=== PATIENT | female | born 1960 | race Caucasian/White ===

== ENCOUNTER 2023-12-31 10:56 | Emergency (ER) | payer BC, SELFPAY ==
[2023-12-31 11:08] VITALS: BP 113/73
[2023-12-31 11:33] VITALS: BP 131/100
--- NOTE | 2023-12-31 11:43 | ED.GENMED ---
History of Present Illness
<ANNA MARIE Harris Last Filed: 12/31/23 13:46>
General
Chief Complaint: Breathing Problem
Source: patient
Exam Limitations: none
Time Seen by Provider: 12/31/23 11:43
Nursing documentation reviewed up to this point in time: agreed with
Travel History
Have you had any contact with someone who has COVID-19?: No
Do you have any symptoms of coronavirus? Fever > 100 degrees, chills, cough, shortness of breath, sore throat, loss of taste or smell, muscle aches, or headache?: No
History of Present Illness
History of Present Illness:
63-year-old female with past medical history of hyperlipidemia, daily tobacco use presenting the emergency department today with 3 days of shortness of breath with exertion. Patient was seen yesterday in [facility] emergency department for
this issue. At the time, they did a CTA of the chest which was negative for PE but did note early emphysematous changes as well as radiation fibrosis changes. Patient states that everything else looked good and they scheduled her for cardiology
follow-up this morning but when she went to the cardiology office this morning, they said that they do not have an appointment for her. Patient then decided to come back to emergency department today at this time. Patient states that since
yesterday, her shortness of breath has been getting worse, but at rest she feels well. Patient denies any chest pain associated with this.
Past History
<ANNA MARIE Harris Last Filed: 12/31/23 13:46>
Past History
ED Past Medical History: Hypercholesterolemia; Negative IDDM, NIDDM or [place]
Social History
Tobacco: Non-smoker
Alcohol: None
Drug: None
Personal:
Living: with family
Employment: Employed
Family History
Family History: Negative Early CAD
Review of Systems
<ANNA MARIE Harris Filed: 12/31/23 13:46>
Review of Systems
All Other Systems: ROS reviewed and negative except as documented in HPI and ROS
Phy Exam
<Kailey Lamb PA-C - Last Filed: 12/31/23 13:46>
Physical Exam
Physical Exam:
General: Patient is well appearing and in no acute distress; non-toxic
Skin: Warm and dry, no rashes or lesions
Head: Normocephalic, atraumatic
Eyes: Sclera non-icteric. EOMs intact.
Cardiac: Regular rate and rhythm, no murmur
Peripheral Vascular: No lower extremity edema, 2+ dorsalis pedis pulses bilaterally
Pulm: Normal respiratory effort, scattered end expiratory wheezes heard on exam, no rhonchi
Neuro: CN II-XII intact, no focal neurologic deficits.
Psychiatric: Appropriate mood and affect.
Scores
<Kailey Lamb PA-C - Last Filed: 12/31/23 13:46>
Heart Failure Risk
Heart Failure Risk Score: Not Applicable
Course
<Kailey Lamb PA-C - Last Filed: 12/31/23 13:46>
Orders/Labs/Results
Orders:
Orders
12/31/23 11:11
Electrocardiogram (*1) Urgent
Reason for Study: Shortness of Breath
12/31/23 11:12
EKG- Treatment ONCE
12/31/23 12:14
Ipratropium/Albuterol Sulfate [Duoneb] 3 ml INH R NOW STA
12/31/23 13:10
Prednisone [Deltasone] 50 mg PO NOW STA
Vital Signs
Initial and Last Documented VS:
Initial Vital Signs
Temp Pulse Resp BP Pulse Ox
98.1 F 89 20 113/73 98
12/31/23 11:08 12/31/23 11:08 12/31/23 11:08 12/31/23 11:08 12/31/23 11:08
Last Documented Vital Signs
Temp Pulse Resp BP Pulse Ox
98.1 F 64 20 175/96 99
12/31/23 11:08 12/31/23 13:30 12/31/23 11:08 12/31/23 13:00 12/31/23 13:15
<Rodríguez Ugalde DO - Last Filed: 12/31/23 13:13>
Orders/Labs/Results
Orders:
Orders
12/31/23 11:11
Electrocardiogram (*1) Urgent
Reason for Study: Shortness of Breath
12/31/23 11:12
EKG- Treatment ONCE
12/31/23 12:14
Ipratropium/Albuterol Sulfate [Duoneb] 3 ml INH R NOW STA
12/31/23 13:10
Prednisone [Deltasone] 50 mg PO NOW STA
Vital Signs
Initial and Last Documented VS:
Initial Vital Signs
Temp Pulse Resp BP Pulse Ox
98.1 F 89 20 113/73 98
12/31/23 11:08 12/31/23 11:08 12/31/23 11:08 12/31/23 11:08 12/31/23 11:08
Last Documented Vital Signs
Temp Pulse Resp BP Pulse Ox
98.1 F 64 20 175/96 99
12/31/23 11:08 12/31/23 13:30 12/31/23 11:08 12/31/23 13:00 12/31/23 13:15
<Kailey Lamb PA-C - Last Filed: 12/31/23 13:46>
MDM/Problems Addressed
Differential Diagnosis Includes:
ddx include upper respiratory tract infection, influenza, acute bronchitis, COPD, radiation pneumonitis
MDM/Problems Addressed:
shortness of breath
Chronic conditions affecting care:
hyperlipidemia, hypothyroidism, tobacco use, hypertension
Acute Exacerbation and/or Progression of Chronic Illness:
hyperlipidemia, hypothyroidism, tobacco use, hypertension
<Kailey Lamb PA-C - Last Filed: 12/31/23 13:46>
*Pulse Oximetry
Patient hypoxic: no
*EKG
Interpreted by ED Provider?: Yes
EKG Intrepretation Date: 12/31/23
Interpretation: abnormal
Comparison EKG: changes noted (QRS duration has decreased)
Heart Rate: 70
Rate: normal
Rhythm: sinus
[place]: normal axis
Interval: normal interval, normal QT interval and normal [place] interval
QRS Pattern: normal QRS
Ischemia: no ischemia
*Critical Care Note
Total Time (30-74mins, 75-104mins- exclusive of procedures): Not Applicable
Data Reviewed
Review of Other/Old Records Reveals: Records (Reviewed previous ER physician documentation from 07/20/2021, reviewed ER physician documentation from 11/05/2012) and Discharge Summary (Discharge summaries in [facility] to review)
Source: patient and records
<Kailey Lamb PA-C - Last Filed: 12/31/23 13:46>
Patient Management
Escalation/DeEscalation of care consider admission/obs:
63-year-old female with past medical history of hyperlipidemia, daily tobacco use presenting the emergency department today with 3 days of shortness of breath with exertion. Patient was seen yesterday in [facility] emergency department for
this issue and that time we did a CTA of her chest, labs, EKG, and arrange for her to have outpatient cardiology follow-up. Patient states that she still feels short of breath today and did not send her home with any medication and when she tried
to follow-up with cardiology today, they said they had no appointment for her. I personally reviewed the patient's CTA from yesterday which revealed mild eczematous changes as well as mild mild fibrotic changes. No evidence of PE. Her EKG today
demonstrates normal sinus rhythm with no acute ischemic changes. Patient states that her labs yesterday were normal. No indication for imaging at this time. I gave patient a DuoNeb treatment which she states that she felt like it did help some of
her symptoms. We also gave patient a dose of prednisone here. We will send her home with a short course and have her set up an appointment as an outpatient to see a chief crna. We have also attached her with a [facility] chest pain hotline to help
expedite cardiology follow-up. Patient stable for discharge at this point. Return precautions given.
ED Attending Note
<Kailey Lamb PA-C - Last Filed: 12/31/23 13:46>
-
Portions of this chart may have been created with voice recognition software.� Occasional wrong word or��sound alike� substitutions may have occurred due to the inherent limitations of voice recognition software.
<Rodríguez Ugalde DO - Last Filed: 12/31/23 13:13>
ED Attending Note
Patient seen and examined by attending physician: Yes
I performed the substantive portion of visit, reviewed & personally made and approve the management plan that is documented in note by myself or DENIA.: Yes
I performed a history and physical exam of patient and discussed management with resident, I reviewed resident's note and agree with documented findings and plan of care.: Yes
ED Attending Note:
I evaluated the patient at bedside. Her room air sats are 99%. She is hypertensive here. She states she has had some radiation related fibrosis/emphysematous changes. She has an inhaler. Will add steroids. She states that you are at low still
moving appointment to see cardiology today however cardiology office had no record of this. We will use low risk cardiology follow-up for her to follow-up with a youth officer here through [place]. Her EKG is unremarkable.
Discharge Plan
Departure
Patient Disposition: Home (Routine Discharge)
Date of Disposition: 12/31/23
Time of Disposition: 13:17
Patient with high blood pressure during this ER visit?: Yes
Condition: Good
Discharge Problem:
Shortness of breath
Instructions: Shortness of Breath (Dyspnea) (DC), Chest Pain CBC Follow Up
Prescriptions:
New
prednisone 20 mg tablet
40 mg PO DAILY 4 Days Qty: 8 0RF
No Action
bupropion HCl 150 mg Tablet Sustained-Release 12 Hr
150 mg PO DAILY
bupropion HCl 150 mg Tablet Sustained-Release 12 Hr
150 mg PO NOON PRN (Reason: depression)
atorvastatin 20 mg Tablet
20 mg PO DAILY
naproxen sodium [Aleve] 220 mg Tablet
220 mg PO DAILYPRN PRN (Reason: mild pain)
ciprofloxacin-dexamethasone 0.3-0.1 % drops,suspension
4 drp LEFT EAR BID
Patient Comments:
12/31/2023, filled on 12/25/[address] 4 drops in left ear BID for 10 days.
thyroid (pork) [Tell Thyroid] 30 mg Tablet
30 mg PO DAILY
Medical Marijuana
1 puff inhalation Q1HPRN PRN (Reason: anxiety)
Patient Comments:
12/31/2023, pt. smokes flower form and smokes one puff at a time throughout the entire day.
Pain Patch
1 patch topical DAILYPRN PRN (Reason: left hip)
iron
1 tab PO DAILYPRN PRN (Reason: supplement)
Referrals:
Rema Hwang MD [Active] - Call in 1-3 days for appt
Yun Rivera DO [Family Provider] -
Activity Restrictions/Additional Instructions:
Please call the attached number for the chief crna. You can call the office today to schedule an appointment.
[facility] They should call you within the coming days to schedule a closer appointment. If they do not, please call the attached number to schedule an appointment.
You received a dose of prednisone today. We have also sent Prednisone to your pharmacy. Please take this for 4 more days. Please take 40 mg once daily for 4 more days.
Please return to the emergency department should you experience an acute worsening of your symptoms, chest pain, syncopal episodes, light headedness, confusion, difficulty speaking, pain or swelling in your legs, or any other concerning signs or
symptoms.
Interventions
Interventions:
*Risk Screen - Suicide Last Done: 12/31/23 11:27
*General Assessment Last Done: 12/31/23 11:27
*Neglect/Abuse Screening Last Done: 12/31/23 11:27
ED- Fall Risk Assessment Last Done: 12/31/23 11:27
*ED COVID-19 Vaccine History Last Done: 12/31/23 11:24
*Nursing Disposition Last Done: 12/31/23 13:37
ED- Cardiac Assessment Last Done: 12/31/23 11:27
ED- Pulmonary Assessment Last Done: 12/31/23 11:27
Discharge Date and Time
Print Language: BELARUSIAN
[2023-12-31 12:00] VITALS: BP 134/87
[2023-12-31] MEDS: DUONEB 3 ML INH (12:18)
[2023-12-31 13:00] VITALS: BP 175/96
[2023-12-31] MEDS: DELTASONE 50 MG PO (13:31)
== END 2023-12-31 13:48 | disposition home or self-care (01) ==
LOC: EMR 10:56
PROVIDERS: EMERGENCY PHYSICIAN Emergency Medicine; FAMILY PHYSICIAN Family Medicine
DX: R06.02 Shortness of breath (principal); E78.00 Pure hypercholesterolemia, unspecified
CPT/HCPCS: 99283; 94640; 93005

== ENCOUNTER 2024-01-02 19:11 | Emergency (ER) | payer BC, SELFPAY ==
[2024-01-02 19:20] VITALS: BP 158/90
[2024-01-02 19:39] LABS: % Basophils 0.4 % (0-2); % Eosinophils 0.1 % (0-6); % Immature Granulocytes 0.5 % (0-0.5); % Lymphocytes 15.8 % (20.5-51.1); % Monocytes 5.3 % (1.7-9.3); % Neutrophils 77.9 % (42.2-75.2); Absolute Basophils 0.1 10^3/uL (0-0.2); Absolute Immature Granulocytes 0.1 10^3/uL (0-0.05); Absolute Lymphocytes 2.2 10^3/uL (1.2-3.4); Absolute Monocytes 0.7 10^3/uL (0.1-0.6); Absolute Neutrophils 10.7 10^3/uL (1.4-6.5); Hematocrit 39.1 % (37.0-47.0); Hemoglobin 13.5 g/dL (12.0-16.0); Mean Corp Hgb Conc. 34.5 g/dL (33.0-37.0); Mean Corpuscular Hgb 32.9 pg (27.0-31.0); Mean Corpuscular Volume 95.4 fL (81.0-99.0); Mean Platelet Volume 9.1 fL (7.4-10.4); Nucleated Red Blood Cells % 0 %; Platelet Count 249 10^3/uL (130-400); Red Cell Dist. Width 13.2 % (11.5-14.5); White Blood Cell Count 13.7 10^3/uL (4.8-10.8)
[2024-01-02 19:53] LABS: ALT (SGPT) 29 U/L (0-35); AST (SGOT) 72 U/L (14-36); Albumin 4.8 g/dl (3.5-5.0); Alkaline Phosphatase 119 U/L (38-126); Blood Urea Nitrogen 35 mg/dl (7-17); Calcium 10.4 mg/dl (8.4-10.2); Carbon Dioxide 25 mmol/L (22-30); Chloride 104 mmol/L (98-107); Glucose 134 mg/dl (70-99); Potassium 3.4 mmol/L (3.5-5.1); Sodium 140 mmol/L (135-145); Total Bilirubin 0.5 mg/dl (0.2-1.3); Total Protein 7.4 g/dl (6.3-8.2); eGFR > 60.00
== END 2024-01-02 23:01 ==
LOC: EMR 19:11
PROVIDERS: Emergency Medicine
DX: R50.9 Fever, unspecified (principal); Z53.21 Procedure and treatment not carried out due to patient leaving prior to being seen by health care provider
CPT/HCPCS: 80053; 83605; 85025; 87040

== ENCOUNTER 2024-01-03 08:54 | Emergency (ER) | payer BC, SELFPAY ==
[2024-01-03 08:56] VITALS: BP 151/94
[2024-01-03 10:18] VITALS: BP 147/88
--- NOTE | 2024-01-03 10:38 | ED.GENMED ---
History of Present Illness
General
Chief Complaint: Ear Problem
Source: patient
Exam Limitations: none
Time Seen by Provider: 01/03/24 09:32
Travel History
Have you had any contact with someone who has COVID-19?: No
Do you have any symptoms of coronavirus? Fever > 100 degrees, chills, cough, shortness of breath, sore throat, loss of taste or smell, muscle aches, or headache?: No
History of Present Illness
History of Present Illness:
63-year-old female with history craniofacial cancer treated with radiation presents in referral from ENT for Pseudomonas in the ear canal on the left side. She complains of ear pain. This is a multidrug-resistant Pseudomonas. She was sent for
PICC line placement and initiation of antibiotics. She denies a fever. No other complaints at this time
Past History
Past History
ED Past Medical History: Hypercholesterolemia; Negative IDDM, NIDDM or [place]
Social History
Tobacco: Non-smoker
Alcohol: None
Drug: None
Personal:
Living: with family
Employment: Employed
Family History
Family History: Negative Early CAD
Phy Exam
Physical Exam
Physical Exam:
General: Well-appearing female no acute respiratory distress
HEENT: Normocephalic atraumatic left external auditory ear paradi tender with otoscope examination no obvious drainage
Lungs: Clear no wheeze or rales
Abdomen: Soft nontender nondistended
Extremities: No cyanosis
Course
Orders/Labs/Results
Orders:
Orders
01/03/24 10:19
INFECTIOUS DISEASE CONSULT Urgent
Consulting Provider: Rose Orozco
Was physician already notified: Yes
01/03/24 10:31
CEFTAZidime [Fortaz] 2,000 mg IV NOW STA
PICC Line As Directed
Comment: 6 weeks
01/03/24 10:33
Insert PICC Urgent
01/03/24 10:34
Sterile Water [Sterile Water For Injection] 10 ml IV NOW STA
01/03/24 10:36
CR Chest - 2 Views Urgent
Comment: POST PICC PLACEMENT
Reason For Exam: suspected infection
01/03/24 11:39
Complete Blood Count/With Diff Urgent
Comprehensive Metabolic Panel Urgent
Blood Culture Routine
CELESTE Source: Blood/Venous
Specimen Description:
Abnormal Lab Results
01/03/24
11:39
MCH 32.9 H pg
(27.0-31.0)
Abs Immat Gran (auto) 0.1 H 10^3/uL
(0-0.05)
Absolute Neuts (auto) 9.0 H 10^3/uL
(1.4-6.5)
Absolute Lymphs (auto) 0.8 L 10^3/uL
(1.2-3.4)
Neutrophils % 88.8 H %
(42.2-75.2)
Lymphocytes % 7.8 L %
(20.5-51.1)
BUN 29 H mg/dl
(7-17)
Glucose 111 H mg/dl
(70-99)
Calcium 10.3 H mg/dl
(8.4-10.2)
AST 69 H U/L
(14-36)
ALT 37 H U/L
(0-35)
01/03/24 11:39
01/03/24 11:39
Vital Signs
Initial and Last Documented VS:
Initial Vital Signs
Temp Pulse Resp BP Pulse Ox
98.3 F 78 18 151/94 97
01/03/24 08:56 01/03/24 08:56 01/03/24 08:56 01/03/24 08:56 01/03/24 08:56
Last Documented Vital Signs
Temp Pulse Resp BP Pulse Ox
97.9 F 82 18 147/88 99
01/03/24 10:18 01/03/24 10:18 01/03/24 10:18 01/03/24 10:18 01/03/24 10:18
MDM/Problems Addressed
Differential Diagnosis Includes:
Patient with known Pseudomonas otitis externa with multidrug-resistant sensitivities. Sent in by ENT for PICC line placement and initiation of antibiotics. Consulted IV team as well as infectious disease. Patient appears stable and nontoxic
otherwise
*Critical Care Note
Total Time (30-74mins, 75-104mins- exclusive of procedures): Not Applicable
Update Note
Update Note:
PICC line established by IV team. Chest x-ray confirms placement. Patient seen by infectious disease and they have ordered appropriate antibiotics. ENT aware. Case management involved and treatment for at home was arranged. Stable for discharge
home.
ED Attending Note
-
Portions of this chart may have been created with voice recognition software.� Occasional wrong word or��sound alike� substitutions may have occurred due to the inherent limitations of voice recognition software.
Discharge Plan
Departure
Patient Disposition: Home (Routine Discharge)
Date of Disposition: 01/03/24
Time of Disposition: 14:37
Patient with high blood pressure during this ER visit?: No
Discharge Problem:
Acute Otitis Externa
Instructions: Outer Ear Infection (DC)
Prescriptions:
No Action
bupropion HCl 150 mg Tablet Sustained-Release 12 Hr
150 mg PO DAILY
bupropion HCl 150 mg Tablet Sustained-Release 12 Hr
150 mg PO NOON PRN (Reason: depression)
atorvastatin 20 mg Tablet
20 mg PO DAILY
thyroid (pork) [Mobile Thyroid] 30 mg Tablet
60 mg PO DAILY
Patient Comments:
01/03/2024, just started taking 2 tablets this morning.
Pain Patch
1 patch topical HSPRN PRN (Reason: left hip)
iron
1 tab PO DAILYPRN PRN (Reason: supplement)
aspirin 325 mg Tablet
325 - 650 mg PO DAILYPRN PRN (Reason: mild pain)
Medical Marijuana
10 mg PO Q4HPRN PRN (Reason: anxiety)
Patient Comments:
01/03/2024, pt. uses medical marijuana 10 mg gummies and takes one gummy Q4HPRN for anxiety.
prednisone 20 mg tablet
20 mg PO BID
Patient Comments:
01/03/2024, x 4 days.
Referrals:
Yun Rivera DO [Family Provider] -
Rose Orozco MD [Active] -
Activity Restrictions/Additional Instructions:
Administer antibiotics through the PICC line as directed. Continue to follow-up with infectious disease as well as ENT. Return if needed otherwise
Interventions
Interventions:
*Risk Screen - Suicide Last Done: 01/03/24 11:15
*General Assessment Last Done: 01/03/24 11:15
*Neglect/Abuse Screening Last Done: 01/03/24 11:15
ED- Fall Risk Assessment Last Done: 01/03/24 11:15
*ED COVID-19 Vaccine History Last Done: 01/03/24 11:15
Discharge Date and Time
Print Language: ANGUILLAN
[2024-01-03] MEDS: STERILE WATER FOR INJECTION 10 ML IV (11:24)
[2024-01-03] MEDS: FORTAZ 2000 MG IV ×2 (11:24→20:05)
--- NOTE | 2024-01-03 11:31 | CM ---
Addendum entered by Vania Burden RN 01/03/24 15:41:
BOB confirmed that Demetrio from [facility] is here to do IV ABT teaching.
Addendum entered by Vania Burden RN 01/03/24 14:51:
BOB spoke with Ciara at [facility]. She is confirming time for RN teach. CM will await call back.
Addendum entered by Vania Burden RN 01/03/24 14:14:
BOB was updated by Jeremy that [facility] will call patient to make arrangements for visits tonight. Patient has been updated and is agreeable to plan.
CM updated bedside RN and ED PA.
Original Note:
BOB reviewed medical records. Bedside RN updated this CM that outpatient ID office is ordering IV antibiotics for patient. CM spoke with Jeremy at the outpatient ID office and she is awaiting call back from Ciara at [facility]. Jeremy will update
this CM when she has secured insurance authorization for patient's IV antibiotics. BOB updated bedside RN and ED PA. CM will continue to follow.
[2024-01-03 11:50] LABS: % Basophils 0.3 % (0-2); % Immature Granulocytes 0.5 % (0-0.5); % Lymphocytes 7.8 % (20.5-51.1); % Monocytes 2.6 % (1.7-9.3); % Neutrophils 88.8 % (42.2-75.2); Absolute Immature Granulocytes 0.1 10^3/uL (0-0.05); Absolute Lymphocytes 0.8 10^3/uL (1.2-3.4); Absolute Monocytes 0.3 10^3/uL (0.1-0.6); Hematocrit 41.2 % (37.0-47.0); Hemoglobin 13.8 g/dL (12.0-16.0); Mean Corp Hgb Conc. 33.5 g/dL (33.0-37.0); Mean Corpuscular Hgb 32.9 pg (27.0-31.0); Mean Corpuscular Volume 98.1 fL (81.0-99.0); Mean Platelet Volume 9.3 fL (7.4-10.4); Nucleated Red Blood Cells % 0 %; Platelet Count 235 10^3/uL (130-400); Red Cell Dist. Width 13.2 % (11.5-14.5); White Blood Cell Count 10.1 10^3/uL (4.8-10.8)
[2024-01-03 12:04] LABS: ALT (SGPT) 37 U/L (0-35); AST (SGOT) 69 U/L (14-36); Albumin 4.7 g/dl (3.5-5.0); Alkaline Phosphatase 120 U/L (38-126); Blood Urea Nitrogen 29 mg/dl (7-17); Calcium 10.3 mg/dl (8.4-10.2); Carbon Dioxide 25 mmol/L (22-30); Chloride 106 mmol/L (98-107); Estimated Creatinine Clearance 49 ml/min; Glucose 111 mg/dl (70-99); Sodium 139 mmol/L (135-145); Total Bilirubin 0.5 mg/dl (0.2-1.3); Total Protein 7.4 g/dl (6.3-8.2); eGFR > 60.00
--- NOTE | 2024-01-03 13:57 | CON.ID ---
Consultation
-
Date/Time Consultation Requested: 01/03/24 10:19
Date/Time Consultation Performed: 01/03/24 10:45
Requesting Provider: roxana
Performing Provider: dr shafer
Reason for Consultation: MAYNARD due to MDRO
Chief Complaint / Past History
Chief Complaint
ear pain
History of Present Illness
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 There is no pain over the mastoid process, no eythema, fluctuance or swelling. She has been on high dose steroids for possible COPDe and
describes herself as immunosuppressed.
Since arrival here no fevers or chills, bp stable,wbc count 10.1, L shift is noted, cr 0.7, I was tiger texted a copy of susceptibilities from the pseudomonas and my office will scan copy into ecw, blood cultures x2 are now in process, no growth to
date, she has had a first dose of ceftazidime and will be set up for home infusion.
Past History
Additional Past Medical History:
Hypercholesterolemia; Negative IDDM, NIDDM or [place]
Additional Past Surgical History:
as per hpi
Allergy History:
No Known Allergies Allergy (Verified 01/03/24 08:56)
Medications Reviewed: Yes
Social History
Tobacco: Non-Smoker
Alcohol: None
Drug: None
Family History
Family History: Not Pertinent
Review of Systems
Review of Systems
General: Negative Fever or Chills
All systems: All other systems were reviewed and were negative
Vital Signs
Temp Pulse Resp BP Pulse Ox
97.9 F 82 18 147/88 99
01/03/24 10:18 01/03/24 10:18 01/03/24 10:18 01/03/24 10:18 01/03/24 10:18
Physical Exam
Physical Exam
Constitutional: No Acute Distress
Head: Other (no redness/swelling/tenderness/fluctuance over the mastoid or external ear, middle ear with swelling redness, tenderness)
Cardiovascular: Regular Rate and S1/S2; Negative Murmur or Rub
Pulmonary: Clear and Symmetric; Negative Wheezes, Rales or Rhonchi
Gastrointestinal: Soft, Non Tender, Non Distended and Normal Bowel Sounds
Skin: Warm and Dry; Negative Rash or Jaundice
Neurological: Awake
Lab / Diagnostic Study Results
01/03/24 11:39
01/03/24 11:39
Abs Immat Gran (auto) 0.1 10^3/uL (0-0.05) H 01/03/24 11:39
Absolute Neuts (auto) 9.0 10^3/uL (1.4-6.5) H 01/03/24 11:39
Absolute Lymphs (auto) 0.8 10^3/uL (1.2-3.4) L 01/03/24 11:39
Absolute Monos (auto) 0.3 10^3/uL (0.1-0.6) 01/03/24 11:39
Absolute Basos (auto) 0.0 10^3/uL (0-0.2) 01/03/24 11:39
Immature Gran % 0.5 % (0-0.5) 01/03/24 11:39
Neutrophils % 88.8 % (42.2-75.2) H 01/03/24 11:39
Lymphocytes % 7.8 % (20.5-51.1) L 01/03/24 11:39
Monocytes % 2.6 % (1.7-9.3) 01/03/24 11:39
Eosinophils % 0.0 % (0-6) 01/03/24 11:39
Basophils % 0.3 % (0-2) 01/03/24 11:39
Microbiology Results
Micro:
01/03/24 11:39 Blood Culture - Pending
Blood/Venous
Assessment / Plan
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
DM2
Current high dose oral steroids for possible COPD flare
- blood cultures x2 in progress
- PICC line
- start ceftazidime 2 gm iv q8 hrs tentatively x6 weeks
- weekly labs to be sent to my office
- follow up in office in a few weeks
Care Review
Plan reviewed with: Physician (Dr Weinstein )
[2024-01-03 16:42] VITALS: BP 160/84
[2024-01-03 20:06] VITALS: BP 167/92
== END 2024-01-03 20:07 | disposition home or self-care (01) ==
LOC: EMR 08:54
PROVIDERS: Physician Assistant; CONSULT PHYSICIAN Student in an Organized Health Care Education/Training Program; EMERGENCY PHYSICIAN Emergency Medicine; FAMILY PHYSICIAN Family Medicine
DX: H60.509 Unspecified acute noninfective otitis externa, unspecified ear (principal); E78.00 Pure hypercholesterolemia, unspecified; Z45.2 Encounter for adjustment and management of vascular access device; Z92.3 Personal history of irradiation
CPT/HCPCS: 99283; 96374; 96376; 71046; 80053; 85025; 87040

== ENCOUNTER 2024-01-21 15:18 | Emergency (ER) | payer BC, SELFPAY ==
[2024-01-21 15:34] VITALS: BP 152/82
--- NOTE | 2024-01-21 16:50 | ED.GENMED ---
History of Present Illness
General
Chief Complaint: Vascular Access Problem
Source: patient
Exam Limitations: none
Time Seen by Provider: 01/21/24 16:39
Nursing documentation reviewed up to this point in time: agreed with
Travel History
Have you had any contact with someone who has COVID-19?: No
Do you have any symptoms of coronavirus? Fever > 100 degrees, chills, cough, shortness of breath, sore throat, loss of taste or smell, muscle aches, or headache?: No
History of Present Illness
History of Present Illness:
63 yo female with R PICC line sent in by ID Dr. Mejia to have line DC'd and placed in opposite arm. Pt states Dr. Barbosa saw her today and said it was infected. Pt state it is tender at insertion site. Has had it in for 3 weeks.
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
Past History
Past History
ED Past Medical History: Hypercholesterolemia, Hypothyroidism and Other (Left ear infection requiring IV antibiotics); Negative IDDM, NIDDM or [place]
ED Past Surgical History: Gynecological
Social History
Tobacco: Non-smoker
Alcohol: None
Drug: None
Personal:
Living: with family
Employment: Employed
Family History
Family History: Negative Early CAD
Review of Systems
Review of Systems
Allergies reviewed?: Yes
All Other Systems: ROS reviewed and negative except as documented in HPI and ROS
Constitutional: Denies fever, fatigue or chills
EENT: Reports other (Denies ear pain)
Respiratory: Denies trouble breathing
Cardiac: Denies chest pain
ABD/GI: Denies abdominal pain
Musculoskeletal: Reports no symptoms
Skin: Reports other (mild redness and tenderness at insertion site RUE Picc line )
Neurological: Reports no symptoms
Phy Exam
Physical Exam
Physical Exam:
GENERAL: No acute distress. A&Ox3.
CONSTITUTIONAL: Afebrile.
RESPIRATORY: Regular respirations, nonlabored, lungs clear.
CARDIOVASCULAR: Regular rate and rhythm, no murmurs, no rubs.
MUSCULOSKELETAL: Moves with ease. Well perfused.
SKIN: Warm, dry, pink, small localized area of redness at the insertion site of the right upper extremity PICC line. The area is mildly tender. Distal neurovascular intact.
PSYCH: Normal mood and affect. Well kept, interactive and appropriate
NEUROLOGIC: Awake, alert and oriented. No focal neurological deficits
Course
Orders/Labs/Results
Orders:
Orders
01/21/24 16:50
PICC Line As Directed
01/21/24 16:[address] Non Medication Order As Directed
Physician Order: Remove PICC line RUE
Above order entered?: Yes
01/21/24 17:25
CR Chest Single View Urgent
Comment:
Reason For Exam: LEFT PICC PLACEMENT
Vital Signs
Initial and Last Documented VS:
Initial Vital Signs
Temp Pulse Resp BP Pulse Ox
98.0 F 68 16 152/82 96
01/21/24 15:34 01/21/24 15:34 01/21/24 15:34 01/21/24 15:34 01/21/24 15:34
Last Documented Vital Signs
Temp Pulse Resp BP Pulse Ox
98.0 F 72 16 146/84 96
01/21/24 15:34 01/21/24 18:36 01/21/24 18:36 01/21/24 18:36 01/21/24 15:34
MDM/Problems Addressed
MDM/Problems Addressed:
63 yo female with R PICC line sent in by ID Dr. Mejia to have line DC'd and placed in opposite arm. Pt states Dr. Barbosa saw her today and said it was infected. Pt state it is tender at insertion site. Has had it in for 3 weeks.
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
Afebrile
Tip of catheter sent for culture
CXR initially read by this examiner and Dr. Chávez: it is in proper position
*Critical Care Note
Total Time (30-74mins, 75-104mins- exclusive of procedures): Not Applicable
ED Attending Note
-
Portions of this chart may have been created with voice recognition software.� Occasional wrong word or��sound alike� substitutions may have occurred due to the inherent limitations of voice recognition software.
Discharge Plan
Departure
Patient Disposition: Home (Routine Discharge)
Date of Disposition: 01/21/24
Time of Disposition: 18:19
Patient with high blood pressure during this ER visit?: No
Condition: Good
Discharge Problem:
PICC line replacement, PIC line (peripherally inserted central catheter) removal
Instructions: Peripherally-Inserted Central Catheter (DC)
Prescriptions:
No Action
bupropion HCl 150 mg Tablet Sustained-Release 12 Hr
150 mg PO DAILY
bupropion HCl 150 mg Tablet Sustained-Release 12 Hr
150 mg PO NOON PRN (Reason: depression)
atorvastatin 20 mg Tablet
20 mg PO DAILY
thyroid (pork) [[place] Thyroid] 30 mg Tablet
60 mg PO DAILY
Patient Comments:
01/03/2024, just started taking 2 tablets this morning.
Pain Patch
1 patch topical HSPRN PRN (Reason: left hip)
iron
1 tab PO DAILYPRN PRN (Reason: supplement)
aspirin 325 mg Tablet
325 - 650 mg PO DAILYPRN PRN (Reason: mild pain)
Medical Marijuana
10 mg PO Q4HPRN PRN (Reason: anxiety)
Patient Comments:
01/03/2024, pt. uses medical marijuana 10 mg gummies and takes one gummy Q4HPRN for anxiety.
prednisone 20 mg tablet
20 mg PO BID
Patient Comments:
01/03/2024, x 4 days.
Referrals:
Yun Rivera DO [Family Provider] -
Rose Orozco MD [Active] - Keep scheduled appt
Interventions
Interventions:
*Risk Screen - Suicide Last Done: 01/21/24 17:00
*General Assessment Last Done: 01/21/24 17:00
*Neglect/Abuse Screening Last Done: 01/21/24 17:00
ED- Fall Risk Assessment Last Done: 01/21/24 17:00
*ED COVID-19 Vaccine History Last Done: 01/21/24 17:00
*Nursing Disposition Last Done: 01/21/24 18:36
Discharge Date and Time
Discharge Date/Time: 01/21/24 18:35
Print Language: SLOVAK
--- NOTE | 2024-01-21 18:35 | EDRN ---
Reviewed discharge instructions with patient. Verbalized understanding. Ambulated with steady gait to the lobby.
[2024-01-21 18:36] VITALS: BP 146/84
== END 2024-01-21 18:35 | disposition home or self-care (01) ==
LOC: EMR 15:18
PROVIDERS: EMERGENCY PHYSICIAN Emergency Medicine; FAMILY PHYSICIAN Family Medicine
DX: Z45.2 Encounter for adjustment and management of vascular access device (principal); E78.00 Pure hypercholesterolemia, unspecified; E03.9 Hypothyroidism, unspecified; Z92.21 Personal history of antineoplastic chemotherapy
CPT/HCPCS: 99283; 71045

== ENCOUNTER 2025-02-10 13:12 | Emergency (ER) | payer MEDICARE, SELFPAY ==
[2025-02-10 13:13] VITALS: BP 98/77
--- NOTE | 2025-02-10 14:20 | ED.GENMED ---
History of Present Illness
General
Chief Complaint: Dizziness
Source: patient
Time Seen by Provider: 02/10/25 13:55
History of Present Illness
History of Present Illness:
CHIEF COMPLAINT(S)
Shortness of breath and near syncope episodes.
HISTORY OF PRESENT ILLNESS
The patient is a 64-year-old female with a past medical history significant for a previous ear infection, treated with a peripherally inserted central catheter line, and a history of head and neck cancer treated 20 years ago with radiation therapy.
The patient reports experiencing progressively worsening shortness of breath over the past week and nearly fainted during a yoga class. She notes significant fatigue and difficulty walking even short distances, for example, from her car to the front
door. The patient describes a persistent throbbing pain in her ear, which has been an ongoing issue for about a year, and it coincided with the onset of her breathing difficulties. She believes her current symptoms might be connected. Per past
assessments, an extensive ear and sinus examination were performed, including a culture that identified an ear infection. 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 Despite treatments, including culture-guided
antibiotics and specialist interventions, her symptoms persist. During her current visit, her blood pressure was recorded as low (approximately 90/70 mmHg), and she emphasizes concern over cardiopulmonary causes.
CHRONIC MEDICAL CONDITIONS SIGNIFICANTLY AFFECTING CARE
- Previous head and neck cancer, treated with radiation therapy.
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
SOCIAL HISTORY
1ppd smoking, alcohol use, or substance abuse.
REVIEW OF SYSTEMS
- General: Fatigue, difficulty with physical activities, particularly noticeable when walking or climbing stairs.
- Respiratory: Shortness of breath.
- Cardiovascular: Near syncope episodes.
- Ear, Nose, and Tongue: Persistent ear pain linked to ongoing infection and sinus issues.
Past History
Past History
ED Past Medical History: Hypercholesterolemia, Hypothyroidism and Other (Left ear infection requiring IV antibiotics); Negative IDDM, NIDDM or [place]
ED Past Surgical History: Gynecological
Social History
Tobacco: Smoker
Alcohol: None
Drug: None
Personal:
Living: with family
Employment: Employed
Family History
Family History: Negative Early CAD
Review of Systems
Review of Systems
All Other Systems: ROS reviewed and negative except as documented in HPI and ROS
Phy Exam
Physical Exam
Physical Exam:
GENERAL: Alert , in no apparent distress, thin
HEAD: Normocephalic atraumatic
EYE: conjunctiva clear
NECK: Supple, no significant adenopathy.
ENT: o/p clr, mmm. Chronic changes to the left tympanic membrane, appears to have small amount of fluid behind the TM, right TM normal, cone of light visualized
CARDIAC: Regular rate and rhythm, no murmur
LUNGS: Clear breath sounds bilaterally, no acute respiratory distress, no wheezes/rales/rhonchi
NEUROLOGICAL: Alert and oriented
SKIN: Warm and dry, skin intact.
MUSCULOSKELETAL: well perfused. No edema
PSYCH: Normal and appropriate interaction.
Scores
Heart Failure Risk
Heart Failure Risk Score: Not Applicable
Heart Score for Chest Pain Patients
STEMI patient?: Not applicable
Withdrawal Assessment of Alcohol
Withdrawal Assessment Completed?: Not applicable
Course
Orders/Labs/Results
Orders:
Orders
02/10/25 13:19
Electrocardiogram (*1) Urgent
Reason for Study: Chest Pain
EKG- Treatment ONCE
02/10/25 14:28
Orthostatic VS- Treatment ONCE
CR Chest - 2 Views Urgent
Comment:
Reason For Exam: SOB, near syncope
02/10/25 14:36
Complete Blood Count/With Diff Urgent
Comprehensive Metabolic Panel Urgent
Magnesium Urgent
NT-proBNP Urgent
TSH Urgent
Troponin I Urgent
Abnormal Lab Results
02/10/25
14:36
RBC 4.02 L 10^6/uL
(4.20-5.40)
MCH 33.3 H pg
(27.0-31.0)
Absolute Monos (auto) 0.8 H 10^3/uL
(0.1-0.6)
Monocytes % 9.4 H %
(1.7-9.3)
Chloride 112 H mmol/L
(98-107)
BUN 21 H mg/dl
(7-17)
TSH < 0.02 L uIU/ml
(0.47-4.68)
02/10/25 14:36
02/10/25 14:36
Vital Signs
Initial and Last Documented VS:
Initial Vital Signs
Temp Pulse Resp BP Pulse Ox
97.9 F 89 20 98/77 98
02/10/25 13:13 02/10/25 13:13 02/10/25 13:13 02/10/25 13:13 02/10/25 13:13
Last Documented Vital Signs
Temp Pulse Resp BP Pulse Ox
97.9 F 89 20 98/77 98
02/10/25 13:13 02/10/25 13:13 02/10/25 13:13 02/10/25 13:13 02/10/25 13:13
MDM/Problems Addressed
Differential Diagnosis Includes:
The Differential Diagnosis includes, in no particular order and is not limited to:
1. Cardiovascular-related syncope.
2. Orthostatic hypotension.
3. Anemia.
4. Chronic obstructive pulmonary disease exacerbation.
5. Heart failure.
6. Pulmonary embolism.
7. Arrhythmia.
8. Vasovagal syncope.
9. Aortic stenosis.
10. Anxiety/panic disorder.
MDM/Problems Addressed:
- Obtain blood work, including cardiac enzymes.
- Conduct orthostatic vital signs assessment to evaluate blood pressure changes with positional changes.
- Perform a chest X-ray to assess heart and lung structures.
- Review results of previously conducted Electrocardiogram.
- Consider referral for further cardiological evaluation, including possible stress testing and echocardiogram.
- Reevaluate and discuss findings with the patient upon receiving test results.
Chronic conditions affecting care: Cancer
*Pulse Oximetry
Patient hypoxic: no
*EKG
Heart Rate: 66
Rate: normal
Rhythm: sinus
QRS Pattern: other (Incomplete right bundle branch block)
*Critical Care Note
Total Time (30-74mins, 75-104mins- exclusive of procedures): Not Applicable
Data Reviewed
Review of Other/Old Records Reveals: Labs, Records and Testing
Comment
Comment:
02/10/25 - 14:26
Patient had been seen in this emergency department on January 03, 2024 for multidrug-resistant Pseudomonas infection. She was started on ceftazidime by infectious disease and followed up with them as an outpatient. Patient does note she has a follow-up
visit scheduled with ENT for this coming Saturday.
02/10/25 - 15:48
Lab results indicate no acute cardiac issues with negative troponin and normal BNP levels. Chest x-ray reveals lung hyperinflation; consider evaluating for potential COPD or asthma as outpatient. Continue current monitoring regimen and assess for
respiratory symptoms indicative of chronic pulmonary conditions.
Patient Management
Discussion with other providers: Assistant Manager Of Operations
Escalation/DeEscalation of care consider admission/obs:
MANAGEMENT OF THE PATIENTS CARE WAS DISCUSSED WITH
Dr. Weinstein, her Ear, Nose, and Throat specialist, was notified of the patients current condition and will follow up with her as scheduled on Saturday.
PLAN
The management plan includes the notification of the patients ENT specialist, and recommendation to continue addressing her low TSH with her primary care provider. Additionally, a follow-up cardiac appointment was expedited through the chest pain
hotline. The patient was advised on return precautions to the ER.
FOLLOW-UP INSTRUCTIONS
The patient will follow up with her Ear, Nose, and Throat specialist, Dr. Weinstein, on Saturday. Additionally, cardiac follow-up was facilitated via the chest pain hotline.
MEDICATION RECONCILIATION
The patient is working on medication adjustments with her primary care provider for her low TSH levels.
MEDICAL DECISION MAKING
The patient presented with complex issues involving both acute and chronic concerns, including the differential diagnosis for her cardiorespiratory symptoms. Continued management of her conditions involves coordination with specialists and primary
care, with considerations of potential hospitalization if symptoms worsen. Social determinants of health do not seem to limit access to care, and the appropriate treatment and follow-up plans were discussed with the patient, ensuring she understood
her current health situation and the advised follow-up steps.
ED Attending Note
-
Portions of this chart may have been created with voice recognition software.� Occasional wrong word or��sound alike� substitutions may have occurred due to the inherent limitations of voice recognition software.
Discharge Plan
Departure
Patient Disposition: Home (Routine Discharge)
Date of Disposition: 02/10/25
Time of Disposition: 16:02
Patient with high blood pressure during this ER visit?: No
Discharge Problem:
Near syncope
Instructions: Near Fainting (DC), Chest Pain DCA Follow Up
Prescriptions:
No Action
bupropion HCl 150 mg Tablet Sustained-Release 12 Hr
150 mg PO DAILY
bupropion HCl 150 mg Tablet Sustained-Release 12 Hr
150 mg PO NOON PRN (Reason: depression)
atorvastatin 20 mg Tablet
20 mg PO DAILY
thyroid (pork) [[place] Thyroid] 30 mg Tablet
60 mg PO DAILY
Patient Comments:
01/03/2024, just started taking 2 tablets this morning.
Pain Patch
1 patch topical HSPRN PRN (Reason: left hip)
iron
1 tab PO DAILYPRN PRN (Reason: supplement)
aspirin 325 mg Tablet
325 - 650 mg PO DAILYPRN PRN (Reason: mild pain)
Medical Marijuana
10 mg PO Q4HPRN PRN (Reason: anxiety)
Patient Comments:
01/03/2024, pt. uses medical marijuana 10 mg gummies and takes one gummy Q4HPRN for anxiety.
prednisone 20 mg tablet
20 mg PO BID
Patient Comments:
01/03/2024, x 4 days.
Referrals:
Yun Rivera DO [Family Provider, Family Practice]
Interventions
Interventions:
*Risk Screen - Suicide Last Done: 02/10/25 13:13
*General Assessment Last Done: 02/10/25 13:13
*Neglect/Abuse Screening Last Done: 02/10/25 13:13
*Nursing Disposition Last Done: 02/10/25 16:24
ED- Neurological Assessment Last Done: 02/10/25 13:41
ED- Cardiac Assessment Last Done: 02/10/25 13:41
ED Swallowing Screen Last Done: 02/10/25 13:47
Discharge Date and Time
Print Language: CHINESE
[2025-02-10 14:51] LABS: % Basophils 1.3 % (0-2); % Eosinophils 2.7 % (0-6); % Immature Granulocytes 0.4 % (0-0.5); % Lymphocytes 20.5 % (20.5-51.1); % Monocytes 9.4 % (1.7-9.3); % Neutrophils 65.7 % (42.2-75.2); Absolute Basophils 0.1 10^3/uL (0-0.2); Absolute Eosinophils 0.2 10^3/uL (0-0.7); Absolute Lymphocytes 1.7 10^3/uL (1.2-3.4); Absolute Monocytes 0.8 10^3/uL (0.1-0.6); Absolute Neutrophils 5.4 10^3/uL (1.4-6.5); Hematocrit 39.3 % (37.0-47.0); Hemoglobin 13.4 g/dL (12.0-16.0); Mean Corp Hgb Conc. 34.1 g/dL (33.0-37.0); Mean Corpuscular Hgb 33.3 pg (27.0-31.0); Mean Corpuscular Volume 97.8 fL (81.0-99.0); Mean Platelet Volume 9.9 fL (7.4-10.4); Nucleated Red Blood Cells % 0 %; Platelet Count 188 10^3/uL (130-400); Red Blood Cell Count 4.02 10^6/uL (4.20-5.40); Red Cell Dist. Width 12.6 % (11.5-14.5); White Blood Cell Count 8.3 10^3/uL (4.8-10.8)
[2025-02-10 15:08] LABS: ALT (SGPT) 23 U/L (0-35); AST (SGOT) 29 U/L (14-36); Albumin 4.1 g/dl (3.5-5.0); Alkaline Phosphatase 85 U/L (38-126); Blood Urea Nitrogen 21 mg/dl (7-17); Carbon Dioxide 27 mmol/L (22-30); Chloride 112 mmol/L (98-107); Glucose 99 mg/dl (70-99); Magnesium 2.2 mg/dl (1.6-2.3); Sodium 143 mmol/L (135-145); Total Bilirubin 0.4 mg/dl (0.2-1.3); Total Protein 6.6 g/dl (6.3-8.2); eGFR > 60.00
[2025-02-10 15:19] LABS: NT-proBNP 268 pg/ml; Troponin I < 0.012 ng/ml
[2025-02-10 15:54] LABS: TSH < 0.02 uIU/ml (0.47-4.68)
[2025-02-10 16:03] VITALS: BP 110/84; BP 122/74; BP 130/71; PULSE 58; PULSE 65; PULSE 79
== END 2025-02-10 16:44 | disposition home or self-care (01) ==
LOC: EMR 13:12
PROVIDERS: Physician Assistant Medical; EMERGENCY PHYSICIAN Emergency Medicine; FAMILY PHYSICIAN Family Medicine
DX: R55 Syncope and collapse (principal); E03.9 Hypothyroidism, unspecified; E78.00 Pure hypercholesterolemia, unspecified; F17.210 Nicotine dependence, cigarettes, uncomplicated
CPT/HCPCS: 99285; 71046; 80053; 83735; 83880; 84443; 84484; 85025; 93005

== ENCOUNTER → 2025-04-02 08:52 | Outpatient (REF) | payer MEDICARE, SELFPAY | LOC: RCS 08:52 | PROVIDERS: ATTENDING PHYSICIAN Internal Medicine Cardiovascular Disease; FAMILY PHYSICIAN Family Medicine | DX: R06.02 Shortness of breath (principal) | CPT/HCPCS: 93306 ==

== ENCOUNTER → 2025-04-05 08:23 | Outpatient (REF) | payer MEDICARE, SELFPAY | LOC: RCS 08:23 | PROVIDERS: ATTENDING PHYSICIAN Internal Medicine Cardiovascular Disease; FAMILY PHYSICIAN Family Medicine | DX: R07.89 Other chest pain (principal) | CPT/HCPCS: 78452; 93017; A9500 ==